=== PATIENT | female | born 1995 | race Caucasian/White ===

== ENCOUNTER 2018-03-02 09:34 | Day surgery (SDC) | payer OTHER ==
[~2018-03-02 09:34] MED LIST: CEFAZOLIN 2 GM/50 ML (PMX) 50 ML IVPB; LACTATED RINGER'S 1,000 ML IV*
[2018-03-02] MEDS ORDERED: FENTAnyl 50 MCG/ML VIAL (13:15)
[2018-03-02] MEDS ORDERED: PROPOFOL 20 ML (13:15)
[2018-03-02] MEDS ORDERED: MIDAZOLAM 1 MG/ML 2 ML INJ (13:15)
[2018-03-02] MEDS ORDERED: LIDOCAINE 2% (SDV) 5 ML INJ (13:15)
[2018-03-02] MEDS ORDERED: CEFAZOLIN 1 GM INJ (13:17)
[2018-03-02] MEDS: DEXTROSE 5% WATER 500 ML BAG IV (14:42)
[2018-03-02] MEDS: ACETAMINOPHEN 1000MG/100ML IV 100 ML IVPB (14:43)
[2018-03-02] MEDS: LIDOCAINE 1% (MPF) 30 ML INJ (16:16)
[2018-03-02] MEDS: BUPIVACAINE 0.5% (SDV) 30 ML INJ (16:16)
[2018-03-02] MEDS: POLYMYXIN/BACITRACIN 1L IRRIG (16:17)
[2018-03-02] MEDS: HYDROmorphONE 1 MG/5 ML IV SYRINGE IV ×2 (16:46→16:55)
[2018-03-02] MEDS ORDERED: ONDANSETRON 4 MG INJ IV (17:00)
[2018-03-02] MEDS ORDERED: HYDROmorphONE 1 MG/5 ML IV SYRINGE IV (17:00)
[2018-03-02] MEDS ORDERED: KETOROLAC 30 MG INJ IV (17:00)
[2018-03-02] MEDS ORDERED: FENTAnyl 50 MCG/ML VIAL IV (17:00)
== END 2018-03-02 17:52 | disposition home or self-care (01) ==
LOC: SDS 09:34
DX: S62.522D Displaced fracture of distal phalanx of left thumb, subsequent encounter for fracture with routine healing (principal); X58.XXXD Exposure to other specified factors, subsequent encounter
CPT/HCPCS: 26765; 73140